=== PATIENT | male | born 1955 | race Caucasian/White ===

== ENCOUNTER 2018-02-28 14:38 | Emergency (ER) | payer OTHER ==
[2018-02-28] MEDS ORDERED: SODIUM CHLORIDE 1,000 ML IV STA (15:23)
--- NOTE | 2018-02-28 15:25 | PDOC ---
History of Present Illness - General Chief Complaint: Pain Stated Complaint: RIGHT FLANK PAIN X 3 DAYS Time Seen by Provider: 02/28/18 15:10 History Source: Patient Exam Limitations: No Limitations - History of Present Illness Initial Comments: 02/28/18 16:33 Bharath is a 62 YOM with chronic arthritis/back pain presenting with right sided abdominal pain x 2-3 days, like knife coming down and burning. a/w + sweats when pain comes. No n/v/d, f/c. No medication use. No alcohol or drug use. No trauma. No traven history. Has tried pepto-bismal and gas-X without much relief, as he initially thought sx were gas-related. No surgical history. No medical history Lives at home with . Past History - Past Medical History Allergies/Adverse Reactions: Allergies Allergy/AdvReac Type Severity Reaction Status Date / Time No Known Allergies Allergy Verified 02/28/18 14:55 Home Medications: Ambulatory Orders Brimonidine Tartrate [Alphagan P 0.1% -] 1 drop OS BID 02/28/18 Cyclobenzaprine HCl [Flexeril 10 mg] 10 mg PO HS 02/28/18 Difluprednate [Durezol] 1 drp OS BID 02/28/18 Divalproex Sodium [Depakote ER] 500 mg PO BID 02/28/18 Gabapentin [Neurontin] 600 mg PO HS 02/28/18 Ibuprofen 600 mg PO QID PRN #20 tablet 02/28/18 Naproxen [Naprosyn] 500 mg PO BID 02/28/18 Nepafenac [Nevanac] 1 drp OS BID 02/28/18 Ofloxacin 0.3% Ophth Soln [Ocuflox 0.3% Eye Drops -] 1 drop OS BID 02/28/18 Ondansetron [Zofran Odt -] 4 mg SL TID PRN #9 od.tablet 02/28/18 Oxycodone HCl 10 mg PO QID PRN #12 tablet MDD 4 02/28/18 Venlafaxine HCl ER [Effexor Xr -] 75 mg PO BID 02/28/18 Anemia: No Asthma: No Cancer: No Cardiac Disorders: No CVA: No COPD: No CHF: No DVT: No Dementia: No Diabetes: No Dialysis: No GI Disorders: No Disorders: No HTN: No Hypercholesterolemia: No Kidney Stones: No Liver Disease: No Psychiatric Problems: No - Suicide/Smoking/Psychosocial Hx Smoking Status: No Smoking History: Never smoked Number of Cigarettes Smoked Daily: 0 Review of Systems - Review of Systems Able to Perform ROS?: Yes Comments:: 02/28/18 16:33 Constitutional: no fevers or chills. HEENT: no headache or dizziness. No congestion. CVS: no cp or syncope. Resp: no sob. No cough. Abdomen: +abdominal pain, no nausea or vomiting. Genitourinary: no urinary sx, hematuria. no dysuria. MUSCULOSKELETAL: No joint pain and swelling. No neck or back pain. SKIN: no redness or skin changes, no discharge, no rash. No wounds. Hematologic: no easy bruising/bleeding. NEUROLOGIC: No headache, dizziness, LOC or altered mental status. No weakness, numbness or tingling. All other systems reviewed and negative, or as documented in HPI. *Physical Exam - Physical Exam Comments: 02/28/18 16:39 General: Well appearing, awake and alert, NAD. HEENT: NCAT, PERRL, EOMI, clear conjunctiva, anicteric, moist mucus membranes, clear oropharynx, no oral lesions.. Neck: neck supple, FROM Resp: CTAB, normal and even respirations, no respiratory distress CVS: RRR, no murmurs, 2+ peripheral pulses throughout, no peripheral edema Abdomen: soft, no CVAT. +RLQ TTP, no palp hernia or bulge. Male : normal external genitalia, no lesions, normal testicular lie, no scrotal or testicular edema or tenderness. no hernia. Back: nontender, normal inspection and ROM MSK: no edema, GAN x4, ROM intact. No clubbing or cyanosis. normal bulk and tone. Extremities: no calf tenderness Neuro: alert, oriented appropriately; no focal neurologic deficits Skin: warm and well perfused, cap refill <2 sec, normal color ED Treatment Course - LABORATORY CBC & Chemistry Diagram: 02/28/18 16:15 02/28/18 16:15 Medical Decision Making - Medical Decision Making 02/28/18 16:50 hpi as documented DDx abdominal pain: Renal colic, ureteral stone, biliary colic, metabolic/ electrolyte derangements. GERD, PUD, esophageal spasm, pancreatitis, hepatitis, constipation, colitis, gastroenteritis, cholecystitis, UTI, pyelonephritis, ileus, SBO, medication side effect, hernia, appendicitis, diverticulitis VS wnl, no fever labs and lytes wnl, Cr and wBC ct normal UA prelim neg for infection, but +RBCs present - so considering renal colic. given morphine and toradol for analgesia, IVF hydration CT a/p: mild moderate right hydronephrosis with mid ureteral stone measuring up to 3-6mm. incidentalomas adrenal nodule and inguinal hernia, very small noted and informed patient. NSAIDS/tylenol for mild to moderate pain, rx oxycodone PRN for more severe pain. zofran for nausea, adequate hydration and oral fluids and air conditioning in hot weather. literature/evidence low for flomax benefit, so defer. urine strainer to catch urine. return precautions discussed including worsening s/s, fevers/systemic symptoms, inability to tolerate PO, worsening abdominal pain sx, dehydration, vomiting or other changes. Urology follow ups provided. 02/28/18 18:31 02/28/18 18:32 02/28/18 19:28 *DC/Admit/Observation/Transfer Diagnosis at time of Disposition: Ureterolithiasis - Discharge Dispostion Disposition: HOME Condition at time of disposition: Good Decision to Admit order: No - Prescriptions Prescriptions: Ibuprofen 600 mg PO QID PRN #20 tablet PRN Reason: Pain Ondansetron [Zofran Odt -] 4 mg SL TID PRN #9 od.tablet PRN Reason: Nausea Oxycodone HCl 10 mg PO QID PRN #12 tablet MDD 4 PRN Reason: Severe Pain - Referrals Referrals: Chuy Bhakta [Primary Care Provider] - Adelso Panda MD [Staff Physician] - Damaso Guidry MD [Staff Physician] - - Patient Instructions Printed Discharge Instructions: DI for Kidney Stones, Renal (Kidney) Disease Diet -- For People Not on Dialysis Additional Instructions: you have a kidney stone on your right side you are actively passing. there is no infection on blood work or urine, which is reassuring. Drink plenty of water Strain all urine for the next 1-2 days and save any stone for analysis Ibuprofen/naproxen/acetaminophen as needed for [id number] pain Oxycodone every 6 hours as needed for severe pain avoid driving or operating machinery with oxycodone, as it can make you feel drowsy Return to ER if you experience persistent pain/vomiting/fever/dehydration or inability to tolerate oral intake. follow up with your urologist. Urologist referral given as well. you are to call tomorrow morning for an appointment with the urologist to be seen in the next 1-2 days, call the number provided below: Adelso Panda MD, FACS No reviews [facility]rologist [facility] - Post Discharge Activity
[2018-02-28 15:33] LABS: URINE APPEARANCE Clear; URINE BILIRUBIN Negative (NEGATIVE); URINE COLOR Yellow; URINE GLUCOSE (UA) Negative (NEGATIVE); URINE KETONE Negative (NEGATIVE); URINE LEUK ESTERASE Negative (NEGATIVE); URINE NITRITE Negative (NEGATIVE); URINE PROTEIN Negative (NEGATIVE); URINE UROBILINOGEN 0.2 (0.2-1.0)
[2018-02-28 15:46] LABS: URINE WBC 0-2 (0-2)
[2018-02-28 15:48] VITALS: BP 148/99; PULSE 73; TEMP 98; BMI 29.4
[2018-02-28] MEDS ORDERED: morphine CARPU-JECT 4 MG/1 ML DISP.SYRIN IVPUSH ONE (15:54)
[2018-02-28] MEDS ORDERED: morphine SULFATE 4 MG/ML VIAL ONE (16:07)
[2018-02-28 16:46] LABS: BASO % 0.5 % (0-2.0); EOS % 0.6 % (0-4.5); HEMATOCRIT 42.2 % (35.4-49); HEMOGLOBIN 13.9 GM/dl (11.7-16.9); LYMPH % 16.6 % (8-40); MEAN CELL VOLUME 84.9 fl (80-96); MEAN PLT VOLUME 9.8 fl (7.5-11.1); MONO % 8.1 % (3.8-10.2); NEUT % 74.2 % (42.8-82.8); PLATELET COUNT 209 K/MM3 (134-434); RBC 4.98 M/mm3 (4.00-5.60); RDW 12.6 % (11.9-15.9)
[2018-02-28 16:47] LABS: ALBUMIN 4.1 g/dl (3.5-5.0); ALK PHOS 62 U/L (32-92); ANION GAP 9 MMOL/L (8-16); BILIRUBIN,TOTAL 0.4 mg/dl (0.2-1.0); BLOOD UREA NITROGEN 21 mg/dl (7-18); CHLORIDE 107 mmol/L (98-107); CO2 23 mmol/L (22-28); CREATININE 1.1 mg/dl (0.6-1.3); GLUCOSE,RANDOM 94 mg/dl (74-106); POTASSIUM 3.6 mmol/L (3.5-5.1); SGOT/AST 15 U/L (10-42); SGPT/ALT 18 U/L (10-40); SODIUM 139 mmol/L (136-145); TOT PROT 6.5 g/dl (6.4-8.3)
[2018-02-28] MEDS ORDERED: KETOROLAC TROMETHAMINE 15 MG/ML VIAL IVPUSH ONE (17:48)
[2018-02-28 17:59] LABS: LIPASE 170 U/L (73-393)
[2018-02-28] MEDS ORDERED: KETOROLAC TROMETHAMINE 15 MG/ML VIAL ONE (18:30)
== END 2018-02-28 19:54 | disposition home or self-care (01) ==
LOC: FER 14:38
PROC: 3E0333Z Introduction of Anti-inflammatory into Peripheral Vein, Percutaneous Approach (ICD-10-PCS; principal; 2018-02-28)
PROC: 3E033NZ Introduction of Analgesics, Hypnotics, Sedatives into Peripheral Vein, Percutaneous Approach (ICD-10-PCS; 2018-02-28)
PROC: 3E0337Z Introduction of Electrolytic and Water Balance Substance into Peripheral Vein, Percutaneous Approach (ICD-10-PCS; 2018-02-28)
DX: N20.1 Calculus of ureter (principal)
CPT/HCPCS: 36415; 74177-TC; 80053; 81003; 81015; 83690; 85025; 87086; 99282-25; J7030

== ENCOUNTER 2018-05-25 23:54 | Emergency (ER) | payer OTHER ==
[2018-05-26 00:08] VITALS: PULSE 74; TEMP 97.9; BMI 30.1
--- NOTE | 2018-05-26 00:37 | PDOC ---
History of Present Illness - General Chief Complaint: Pain, Acute Stated Complaint: PAIN/NAUSEA Time Seen by Provider: 05/26/18 00:21 - History of Present Illness Initial Comments: This 63-year-old man with a history of right-sided kidney stone as well as GERD/ psychiatric problems (depression), presents with several hour history of right flank/right lower quadrant abdominal pain. Patient states this was very similar to his previous episodes of renal stone colic. Tonight, he also had nausea with a few episodes of vomiting. No burning with urination/hematuria/ dysuria. No fevers/chills. The patient did not have any narcotics pain medication from previous episode of renal colic (oxycodone originally prescribed was not covered by his insurance so patient did not fill the prescription) and only took Flomax capsule this evening after onset of pain. Patient was seen here 02/28/18 with right-sided flank pain. 6 millimeters stone was seen in the proximal right ureter area with moderate hydronephrosis. Also, there was incidental finding of left adrenal mass. Patient was seen by Past History - Past Medical History Allergies/Adverse Reactions: Allergies Allergy/AdvReac Type Severity Reaction Status Date / Time No Known Allergies Allergy Verified 02/28/18 14:55 Home Medications: Ambulatory Orders Brimonidine Tartrate [Alphagan P 0.1% -] 1 drop OS BID 02/28/18 Cyclobenzaprine HCl [Flexeril 10 mg] 10 mg PO HS 02/28/18 Difluprednate [Durezol] 1 drp OS BID 02/28/18 Divalproex Sodium [Depakote ER] 500 mg PO BID 02/28/18 Gabapentin [Neurontin] 600 mg PO HS 02/28/18 Ibuprofen 600 mg PO QID PRN #20 tablet 02/28/18 Naproxen [Naprosyn] 500 mg PO BID 02/28/18 Nepafenac [Nevanac] 1 drp OS BID 02/28/18 Ofloxacin 0.3% Ophth Soln [Ocuflox 0.3% Eye Drops -] 1 drop OS BID 02/28/18 Ondansetron [Zofran Odt -] 4 mg SL TID PRN #9 od.tablet 02/28/18 Oxycodone HCl 10 mg PO QID PRN #12 tablet MDD 4 02/28/18 Venlafaxine HCl ER [Effexor Xr -] 75 mg PO BID 02/28/18 Oxycodone HCl/Acetaminophen [Percocet 5-325 mg Tablet] 1 tab PO Q6H PRN #12 tablet MDD 2 tabs 05/26/18 Anemia: No Asthma: No Cancer: No Cardiac Disorders: No CVA: No COPD: No CHF: No DVT: No Dementia: No Diabetes: No Dialysis: No GI Disorders: No Disorders: No HTN: No Hypercholesterolemia: No Kidney Stones: No Liver Disease: No Psychiatric Problems: Yes Other medical history: CHRONIC PAIN,MIGRAINES - Suicide/Smoking/Psychosocial Hx Smoking Status: No Smoking History: Unknown if ever smoked Have you smoked in the past 12 months: No Number of Cigarettes Smoked Daily: 0 Information on smoking cessation initiated: No Hx Alcohol Use: Yes (SOCIAL) Drug/Substance Use Hx: No *Physical Exam - Vital Signs Last Vital Signs Temp Pulse Resp BP Pulse Ox 97.9 F 74 18 174/118 H 100 05/26/18 00:00 05/26/18 00:00 05/26/18 00:00 05/26/18 00:00 05/26/18 00:00 - Physical Exam Comments: GENERAL: Adult male, in moderate distress secondary to right flank pain HEAD: Normal with no signs of trauma. EYES: PERRLA, EOMI, sclera anicteric, conjunctiva clear. ENT: Ears normal, nares patent, oropharynx clear without exudates. Dry mucous membranes. NECK: Normal range of motion, supple without lymphadenopathy, JVD, or masses. LUNGS: Breath sounds equal, clear to auscultation bilaterally. No wheezes, and no crackles. HEART:Regular rate and rhythm, normal S1 and S2 without murmur, rub or gallop. ABDOMEN:.normal bowel sounds; moderate right flank tenderness no involuntary guarding or rebound.No masses No distention. EXTREMITIES: Normal range of motion, no edema. No clubbing or cyanosis. No erythema, or tenderness. NEUROLOGICAL: Cranial nerves II through XII grossly intact. Normal speech. No focal neurological deficits. MUSCULOSKELETAL: Back non-tender to palpation, no CVA tenderness SKIN: Warm, Dry, normal turgor, no rashes or lesions noted. Moderate Sedation - Procedure Monitoring Vital Signs: Procedure Monitoring Vital Signs Temperature 97.9 F 05/26/18 00:00 Pulse Rate 74 05/26/18 00:00 Respiratory Rate 18 05/26/18 00:00 Blood Pressure 174/118 H 05/26/18 00:00 O2 Sat by Pulse Oximetry (%) 100 05/26/18 00:00 ED Treatment Course - LABORATORY CBC & Chemistry Diagram: 05/26/18 00:45 05/26/18 00:45 Progress Note - Progress Note Progress Note: This 63-year-old man with a history of right sided renal colic 3 months ago with 6 mm stone seen in the proximal right ureter presents with recurrent right flank pain associated with nausea/vomiting and diaphoresis. Because the patient had an incidental adrenal mass seen on his initial CT, he was seen by urologic oncologist within the last few days and had repeat CT. No ureteral stone was reportedly seen in the right ureter on the repeat CT. Patient given IV fluids (1 L normal saline). Toradol 30 mg IV given for pain relief. Renal stone protocol CT performed: Interpretation by Imaging evaluation analyst: 6 mm renal stone seen in the distal right ureter. Moderate hydronephrosis present with perinephric stranding. CBC is essentially normal; patient has significant increase in his creatinine ( 1.5 from 1 3 months ago), otherwise, no significant changes in laboratory values. Patient has trace blood and has urinalysis dipstick. The patient feels comfortable after liter normal saline and Toradol 30 mg IV. No further pain/nausea/vomiting. He feels ready to go home and will be discharged with instructions to continue to drink plenty of fluids. He should continue the Flomax and use ibuprofen/Tylenol as needed for mild pain. Percocet 5/325 (#12) prescription sent to his pharmacy. Patient should call Dr. Panda office when it opens on Monday morning and follow-up as arranged. If he has further persistent pain/vomiting/fever or other new symptoms, he should return to the ER *DC/Admit/Observation/Transfer Diagnosis at time of Disposition: Renal colic on right side - Discharge Dispostion Disposition: HOME Condition at time of disposition: Stable - Prescriptions Prescriptions: Oxycodone HCl/Acetaminophen [Percocet 5-325 mg Tablet] 1 tab PO Q6H PRN #12 tablet MDD 2 tabs PRN Reason: Severe Pain - Referrals Referrals: Adelso Panda MD [Staff Physician] - - Patient Instructions Printed Discharge Instructions: Kidney Stones -- Adult Additional Instructions: Drink plenty of water Continue Tamulosin (Flomax) as prescribed Ibuprofen/acetaminophen as needed for [id number] pain Percocet 5/325 up to 3 tablets a day as needed for severe pain Return to ER if you have persistent severe pain or vomiting/fever Call and follow-up as arranged Followup with Dr Bhakta within 2 weeks for BP check - Post Discharge Activity
[2018-05-26] MEDS ORDERED: KETOROLAC TROMETHAMINE 30 MG/1 ML VIAL IVPUSH ONE (00:53)
[2018-05-26] MEDS ORDERED: SODIUM CHLORIDE 1,000 ML IV STA (00:54)
[2018-05-26] MEDS ORDERED: KETOROLAC TROMETHAMINE 30 MG/1 ML VIAL ONE (00:58)
[2018-05-26 01:32] LABS: BASO % 0.3 % (0-2.0); EOS % 0.3 % (0-4.5); HEMATOCRIT 41.5 % (35.4-49); HEMOGLOBIN 14.3 GM/dL (11.7-16.9); LYMPH % 7.5 % (8-40); MCH 28.8 pg (25.7-33.7); MCHC 34.4 g/dl (32.0-35.9); MEAN CELL VOLUME 83.8 fl (80-96); MEAN PLT VOLUME 9.7 fl (7.5-11.1); MONO % 6.4 % (3.8-10.2); NEUT % 85.5 % (42.8-82.8); PLATELET COUNT 200 K/MM3 (134-434); RBC 4.95 M/mm3 (4.00-5.60); RDW 13.9 % (11.9-15.9); WHITE BLOOD COUNT 12.4 K/mm3 (4.0-10.0)
[2018-05-26 01:36] LABS: EPI CELLS 0.3 /HPF (0-5); HYALINE CASTS 0 /hpf (0-8); URINE APPEARANCE CLEAR; URINE BACTERIA 0.504 /hpf (NEGATIVE); URINE BILIRUBIN NEGATIVE (<2.0 mg/dL); URINE COLOR YELLOW; URINE GLUCOSE (UA) TRACE (NEGATIVE); URINE KETONE NEGATIVE (NEGATIVE); URINE LEUK ESTERASE NEGATIVE (NEGATIVE); URINE NITRITE NEGATIVE (NEGATIVE); URINE PROTEIN NEGATIVE (NEGATIVE); URINE RBC 3 /hpf (0-4); URINE UROBILINOGEN 0.2 mg/dL (0.2-1.0); URINE WBC 0 /hpf (0-5)
[2018-05-26 02:00] LABS: ALK PHOS 74 U/L (45-117); ANION GAP 4 MMOL/L (8-16); BILIRUBIN,TOTAL 0.3 mg/dL (0.2-1); BLOOD UREA NITROGEN 24 mg/dL (7-18); CALCIUM 8.6 mg/dL (8.5-10.1); CHLORIDE 104 mmol/L (98-107); CO2 28 mmol/L (21-32); CREATININE 1.5 mg/dL (0.55-1.3); GLUCOSE,RANDOM 120 mg/dL (74-106); SGOT/AST 15 U/L (15-37); SGPT/ALT 28 U/L (13-61); SODIUM 136 mmol/L (136-145); TOT PROT 7.2 g/dl (6.4-8.2)
[2018-05-26 02:19] VITALS: BP 157/102
== END 2018-05-26 02:29 | disposition home or self-care (01) ==
LOC: FER 23:54
PROC: 3E0333Z Introduction of Anti-inflammatory into Peripheral Vein, Percutaneous Approach (ICD-10-PCS; principal; 2018-05-25)
PROC: 3E0337Z Introduction of Electrolytic and Water Balance Substance into Peripheral Vein, Percutaneous Approach (ICD-10-PCS; 2018-05-25)
DX: N23 Unspecified renal colic (principal)
CPT/HCPCS: 36415; 74176-TC; 80053; 81003; 85025; 96361; 96374; 99283-25; J7030

== ENCOUNTER 2018-06-21 06:23 | Day surgery (SDC) | payer OTHER ==
[2018-06-20 12:43] VITALS: BMI 29.4
--- NOTE | 2018-06-21 07:53 | HP ---
History & Physical Update - History History: No Change - Physical Physical: No Change - Assessment Assessment: No Change - Plan Plan: No Change
[2018-06-21] MEDS ORDERED: ACETAMINOPHEN 1000 MG/100 ML VIAL (NON FORMULARY) IVPB ONE (07:54)
[2018-06-21] MEDS ORDERED: MIDAZOLAM HCL 2 MG/2 ML SINGLE DOSE VIAL ONE ×2 (08:00)
[2018-06-21] MEDS ORDERED: DEXTROSE 5%-0.45% SALINE 1,000 ML IV SCH (08:00)
[2018-06-21] MEDS ORDERED: IBUPROFEN 800 MG/8 ML IJ IVPB SCH (08:00)
[2018-06-21] MEDS ORDERED: PROPOFOL 20 ML ONE (08:03)
[2018-06-21] MEDS ORDERED: ROCURONIUM BROMIDE 50 MG/5 ML VIAL ONE (08:04)
[2018-06-21] MEDS ORDERED: ceFAZolin SODIUM 1 GM VIAL IVPB ONE (08:08)
[2018-06-21] MEDS ORDERED: oxyCODONE HCL 5 MG TABLET PO PRN (08:56)
[2018-06-21] MEDS ORDERED: ONDANSETRON 4 MG/2 ML VIAL IVPUSH PRN (08:56)
[2018-06-21] MEDS ORDERED: PROMETHAZINE HCL 25 MG/1 ML VIAL IVPUSH PRN (08:56)
[2018-06-21] MEDS ORDERED: LACTATED RINGERS SOLUTION 1,000 ML IV SCH (09:00)
[2018-06-21] MEDS ORDERED: ACETAMINOPHEN INJECTION 100 ML IVPB ONE (09:15)
[2018-06-21 12:02] VITALS: BP 122/81; PULSE 68; TEMP 97.8
--- NOTE | 2018-06-22 13:30 | OP ---
DATE OF OPERATION: 06/21/2018 PREOPERATIVE DIAGNOSIS: Right ureteral calculus. POSTOPERATIVE DIAGNOSIS: Right ureteral calculus. PROCEDURES: Right ureteroscopy, laser lithotripsy, and right ureteral stent placement. ANESTHESIA: General. SURGEON: Adelso Panda MD FINDINGS: An obstructing and impacted stone in the distal right ureter. DRAIN: A 6 x 24 double-J ureteral stent. PREOPERATIVE INDICATION: The patient is a 63-year-old male with right-sided flank pain. He has a 6-mm stone in his distal right ureter which has been there for several weeks, has not passed. He comes to the OR today. OPERATION: The patient was brought to the OR, placed on the table in the supine position, given general anesthesia and IV antibiotics, and placed in the modified lithotomy position. Timeout was performed. Cystoscopy was performed. The urethra and prostate appeared to be unremarkable. The bladder itself was also unremarkable. The UO on the right was seen and a wire was passed up under fluoroscopic guidance. A 10-American dual-lumen catheter was used to dilate the distal ureter. A 7.5-American semi-rigid ureteroscope was passed into the distal right ureter. The stone was seen in the distal ureter and was impacted. Using a holmium laser fiber, as well as assistance from a stone basket, pieces were broken up and pulled out of the ureter. No significant stones were seen within the ureter. A 6 x 24 double-J ureteral stent was under fluoroscopic guidance . Bladder was emptied. The patient was woken up. ADELSO PANDA M.D. [id number]
== END 2018-06-21 11:30 | disposition home or self-care (01) ==
LOC: JASU-SURG 06:23
PROVIDERS: ATTEND Urology
PROC: 0TF68ZZ Fragmentation in Right Ureter, Via Natural or Artificial Opening Endoscopic (ICD-10-PCS; principal; 2018-06-21 08:00)
PROC: 0T768DZ Dilation of Right Ureter with Intraluminal Device, Via Natural or Artificial Opening Endoscopic (ICD-10-PCS; 2018-06-21 08:00)
DX: N20.1 Calculus of ureter (principal); I10 Essential (primary) hypertension
CPT/HCPCS: 76000-TC-FY; 94760; J0131